=== PATIENT | male | born 1990 | race Caucasian/White ===

== ENCOUNTER 2023-09-14 13:52 | Emergency (ER) | payer BC, SELFPAY ==
[2023-09-14 13:58] VITALS: BP 167/81
[2023-09-14 14:26] LABS: Urine Albumin Negative (Neg - Trace); Urine Bilirubin Negative (Negative); Urine Character Clear (Clear); Urine Color Yellow; Urine Glucose Negative (Negative); Urine Ketone Negative (Negative); Urine Leukocyte Negative (Negative); Urine Nitrite Negative (Negative); Urine Occult Blood 2+ (Negative); Urine Specific Gravity 1.015 (<1.030); Urine Urobilinogen Negative (Neg - 1+)
--- NOTE | 2023-09-14 14:30 | ED.GENMED ---
History of Present Illness
<Kiah Valadez METER MAINTENANCE PERSON - Last Filed: 09/14/23 21:00>
General
Chief Complaint: Male Genito-Urinary Symptoms
Source: patient
Exam Limitations: none
Time Seen by Provider: 09/14/23 14:29
Nursing documentation reviewed up to this point in time: agreed with
Travel History
Have you had any contact with someone who has COVID-19?: No
Do you have any symptoms of coronavirus? Fever > 100 degrees, chills, cough, shortness of breath, sore throat, loss of taste or smell, muscle aches, or headache?: No
History of Present Illness
History of Present Illness:
32-year-old male with no clinically significant past medical history presents stating for past 6 months has had intermittent episodes of inability to empty his bladder, frequency, dribbling, urgency, then back to normal urination.
Saw Urologist 3 weeks ago, found microscopic blood in urine, normal prostate exam and ordered CT scan which pt hasn't gotten. Yesterday episode again of urgency, frequency, dribbling or inability to urinate.
Denies fever/ chills, denies abdominal pain or bladder discomfort. No constipation.
Past History
<Kiah Valadez, METER MAINTENANCE PERSON - Last Filed: 09/14/23 21:00>
Past History
ED Past Medical History: Other (Chronic back pain)
ED Past Surgical History: None
Social History
Tobacco: Non-smoker
Alcohol: Occasional
Drug: None
Personal:
Living: with family
Employment: Employed ([employer])
Review of Systems
<Kiah Valadez, METER MAINTENANCE PERSON - Last Filed: 09/14/23 21:00>
Review of Systems
Allergies reviewed?: Yes
All Other Systems: ROS reviewed and negative except as documented in HPI and ROS
Constitutional: Denies fever or chills
ABD/GI: Denies abdominal pain, nausea or constipated
: Reports frequency, difficulty voiding and urgency; Denies dysuria, flank pain or bleeding
Musculoskeletal: Reports no symptoms
Skin: Reports no symptoms
Neurological: Reports no symptoms
Phy Exam
<Kiah Valadez, METER MAINTENANCE PERSON - Last Filed: 09/14/23 21:00>
Physical Exam
Physical Exam:
GENERAL: No acute distress. A&Ox3.
CONSTITUTIONAL: Afebrile.
ENMT: moist mucus membranes, Pharynx nl
RESPIRATORY: Regular respirations, nonlabored, lungs clear.
CARDIOVASCULAR: Regular rate and rhythm, no murmurs, no rubs.
GI: Soft, nontender, normal BS. No suprapubic tenderness.
MUSCULOSKELETAL: Moves with ease. Well perfused.
SKIN: Warm, dry, pink
PSYCH: Normal mood and affect. Well kept, interactive and appropriate
NEUROLOGIC: Awake, alert and oriented. No focal neurological deficits, ambulates well with steady gait, strength equal throughout
Course
<Kiah Valadez, METER MAINTENANCE PERSON - Last Filed: 09/14/23 21:00>
Orders/Labs/Results
Orders:
Orders
09/14/23 14:20
Urinalysis Reflex To Culture Urgent
Date Specimen was Collected: 09/14/23
Time Specimen was Collected: 14:17
Urine Microscopic Reflex Cult Urgent
09/14/23 14:55
CT Abd/Pel (IV only)-[facility] only Urgent
Comment:
Reason For Exam: urine retention, difficulty urinating past 6 month
09/14/23 15:18
Complete Blood Count/With Diff Urgent
Comprehensive Metabolic Panel Urgent
09/14/23 18:29
Lidocaine 2% [Lidocaine Uro-Jet 2%] 1 syringe [facility]
Abnormal Lab Results
09/14/23 09/14/23
14:20 15:18
WBC 11.5 H 10^3/uL
(4.8-10.8)
MCV 79.8 L fL
(80.0-94.0)
Abs Immat Gran (auto) 0.1 H 10^3/uL
(0-0.05)
Absolute Neuts (auto) 8.0 H 10^3/uL
(1.4-6.5)
Absolute Monos (auto) 0.9 H 10^3/uL
(0.1-0.6)
Immature Gran % 0.6 H %
(0-0.5)
Ur Occult Blood Reflex 2+ A
(Negative)
Urine RBC 16-20 A /HPF
(0-2)
Urine Bacteria (Reflex) Few A
(Negative)
09/14/23 15:18
09/14/23 15:18
Vital Signs
Initial and Last Documented VS:
Initial Vital Signs
Temp Pulse Resp BP Pulse Ox
98.1 F 83 18 167/81 98
09/14/23 13:58 09/14/23 13:58 09/14/23 13:58 09/14/23 13:58 09/14/23 13:58
Last Documented Vital Signs
Temp Pulse Resp BP Pulse Ox
98.1 F 83 18 167/81 98
09/14/23 13:58 09/14/23 13:58 09/14/23 13:58 09/14/23 13:58 09/14/23 13:58
<Fernie Khan MD - Last Filed: 09/14/23 19:38>
Orders/Labs/Results
Orders:
Orders
09/14/23 14:20
Urinalysis Reflex To Culture Urgent
Date Specimen was Collected: 09/14/23
Time Specimen was Collected: 14:17
Urine Microscopic Reflex Cult Urgent
09/14/23 14:55
CT Abd/Pel (IV only)-[facility] only Urgent
Comment:
Reason For Exam: urine retention, difficulty urinating past 6 month
09/14/23 15:18
Complete Blood Count/With Diff Urgent
Comprehensive Metabolic Panel Urgent
09/14/23 18:29
Lidocaine 2% [Lidocaine Uro-Jet 2%] 1 syringe .ROUTE .[facility]
Abnormal Lab Results
09/14/23 09/14/23
14:20 15:18
WBC 11.5 H 10^3/uL
(4.8-10.8)
MCV 79.8 L fL
(80.0-94.0)
Abs Immat Gran (auto) 0.1 H 10^3/uL
(0-0.05)
Absolute Neuts (auto) 8.0 H 10^3/uL
(1.4-6.5)
Absolute Monos (auto) 0.9 H 10^3/uL
(0.1-0.6)
Immature Gran % 0.6 H %
(0-0.5)
Ur Occult Blood Reflex 2+ A
(Negative)
Urine RBC 16-20 A /HPF
(0-2)
Urine Bacteria (Reflex) Few A
(Negative)
09/14/23 15:18
09/14/23 15:18
Vital Signs
Initial and Last Documented VS:
Initial Vital Signs
Temp Pulse Resp BP Pulse Ox
98.1 F 83 18 167/81 98
09/14/23 13:58 09/14/23 13:58 09/14/23 13:58 09/14/23 13:58 09/14/23 13:58
Last Documented Vital Signs
Temp Pulse Resp BP Pulse Ox
98.1 F 83 18 167/81 98
09/14/23 13:58 09/14/23 13:58 09/14/23 13:58 09/14/23 13:58 09/14/23 13:58
<Kiah Valadez METER MAINTENANCE PERSON - Last Filed: 09/14/23 21:00>
MDM/Problems Addressed
Differential Diagnosis Includes:
UTI, urethral stricture, mass, neurogenic bladder
MDM/Problems Addressed:
32-year-old male with no clinically significant past medical history presents stating for past 6 months has had intermittent episodes of inability to empty his bladder, frequency, dribbling, urgency, then back to normal urination.
Saw Urologist 3 weeks ago, found microscopic blood in urine, normal prostate exam and ordered CT scan which pt hasn't gotten. Yesterday episode again of urgency, frequency, dribbling or inability to urinate.
Denies fever/ chills, denies abdominal pain or bladder discomfort. No constipation.
NAD
Abdomen benign
4:30 PM:
CBC: WBC 11.5
CMP: Normal
UA: 2+ occult blood, 16-[address] abdomen pelvis: Radiology report read: IMPRESSION: The spleen is mildly enlarged with maximum dimension of 15.0 cm. No evidence of a focal splenic lesion.
Bony degenerative changes as described.
Normal CT appearance of the kidneys and bladder. Of note, the bladder measures 12.8 cm craniocaudal by 11.1 cm AP by 9.6 cm transverse, giving an estimated volume of 713 cc. As warranted, consideration could be given to ultrasound assessment of
bladder postvoid residual.
Mena catheter placed. Pt has appointment with [facility] in 10 days. He will call tomorrow to see if appt should be moved up.
No sign of infection, no antibiotics indicated.
No neurological deficits.
6:48 PM unsuccessful attempt x 2 to insert Mena catheter, unsuccessful attempt x 1 using a coud� catheter.
Dr. Khan consulted and in.
7:15 PM
Patient's symptoms seem to be slowly resolving, he has voided twice and a repeat bladder scan at this time shows a residual of 380 cc.
Since he has had these episodes in the past, his abdomen is soft, nontender, nondistended, his symptoms seem to be slowly resolving, it is reasonable to discharge him to contact his urologist tomorrow, and to return here tomorrow if his symptoms are
not completely resolved.
<Kiah Valadez NP - Last Filed: 09/14/23 21:00>
*Critical Care Note
Total Time (30-74mins, 75-104mins- exclusive of procedures): Not Applicable
ED Attending Note
<Kiah Valadez NP - Last Filed: 09/14/23 21:00>
-
Portions of this chart may have been created with voice recognition software.� Occasional wrong word or��sound alike� substitutions may have occurred due to the inherent limitations of voice recognition software.
<Fernie Khan MD - Last Filed: 09/14/23 19:38>
ED Attending Note
Patient seen and examined by attending physician: Yes
I performed the substantive portion of visit, reviewed & personally made and approve the management plan that is documented in note by myself or JOHNSON.: Yes
ED Attending Note:
Patient with urinary retention and decreased flow throughout the day. Has had this intermittently for a while. Has been seen by urology. Scheduled for cystoscopy in the near future. No fever abdominal pain no distal numbness tingling or
weakness. No neurologic symptoms or spinal symptoms.
On exam patient is nontoxic in no distress. Abdomen is soft and nontender. Good lower extremity strength. No appreciable urinary tension clinically
Labs are stable renal function normal. No sign of urine infection. Patient was able to urinate twice while I was there. He states this is the way these episodes happen and they usually continue to improve and resolve over 12 to 24 hours. We
attempted a catheter earlier without success. Patient symptoms have been improving in the last hour or so. The weight is typically behaves his it resolves. He would like to avoid catheter. Currently has about 380 cc and is no distress. He will
see how this progresses overnight fully understanding there is a chance he is returning more tomorrow for a catheter. I stressed if symptoms do not totally resolve he needs to return as this could affect his kidney function
Discharge Plan
Departure
Patient Disposition: Home (Routine Discharge)
Date of Disposition: 09/14/23
Time of Disposition: 19:21
Patient with high blood pressure during this ER visit?: No
Condition: Good
Discharge Problem:
Acute retention of urine, Microscopic hematuria
Instructions: Urinary Retention (DC)
Prescriptions:
No Action
prednisone 50 MG tablet
50 mg PO DAILY 5 Days Qty: 5 0RF
cyclobenzaprine 10 MG tablet
10 mg PO BIDPRN PRN (Reason: muscle spasm) 7 Days Qty: 13 0RF
acetaminophen [Tylenol Extra Strength] 500 MG tablet
500 mg PO Q6HPRN PRN (Reason: pain) 5 Days Qty: 16 0RF
Referrals:
Victor M, [facility] [Other] - Keep scheduled appt
Teresa Miller PA [Family Provider] -
Stand Alone Forms: Return to Work
Activity Restrictions/Additional Instructions:
As we discussed, call your urologist at [facility] tomorrow to see if they want you to move your appointment
If you retain urine for too long it can affect your kidneys
Return here tomorrow if your symptoms are not fully resolved.
Interventions
Interventions:
*Risk Screen - Suicide Last Done: 09/14/23 13:58
*General Assessment Last Done: 09/14/23 13:58
*Neglect/Abuse Screening Last Done: 09/14/23 13:58
ED- Fall Risk Assessment Last Done: 09/14/23 14:50
*ED COVID-19 Vaccine History Last Done: 09/14/23 14:47
*Nursing Disposition Last Done: 09/14/23 19:30
ED-Male Genitourinary Assessment Last Done: 09/14/23 14:50
Discharge Date and Time
Discharge Date/Time: 09/14/23 19:30
Print Language: MALAY
[2023-09-14 14:33] LABS: Urine Squamous Cell 0-2 /LPF (Few)
[2023-09-14 14:34] LABS: Urine Bacteria Few (Negative); Urine Red Blood Cell 16-20 /HPF (0-2); Urine White Cell 0-2 /HPF (0-5)
[2023-09-14 15:27] LABS: % Basophils 0.5 % (0-2); % Eosinophils 0.3 % (0-6); % Immature Granulocytes 0.6 % (0-0.5); % Lymphocytes 20.9 % (20.5-51.1); % Monocytes 8.2 % (1.7-9.3); % Neutrophils 69.5 % (42.2-75.2); Absolute Basophils 0.1 10^3/uL (0-0.2); Absolute Immature Granulocytes 0.1 10^3/uL (0-0.05); Absolute Lymphocytes 2.4 10^3/uL (1.2-3.4); Absolute Monocytes 0.9 10^3/uL (0.1-0.6); Hematocrit 43.5 % (39.0-52.0); Hemoglobin 15.5 g/dL (13.0-18.0); Mean Corp Hgb Conc. 35.6 g/dL (33.0-37.0); Mean Corpuscular Hgb 28.4 pg (27.0-31.0); Mean Corpuscular Volume 79.8 fL (80.0-94.0); Mean Platelet Volume 10.2 fL (7.4-10.4); Nucleated Red Blood Cells % 0 % (-); Platelet Count 227 10^3/uL (130-400); Red Blood Cell Count 5.45 10^6/uL (4.70-6.10); Red Cell Dist. Width 12.2 % (11.5-14.5); White Blood Cell Count 11.5 10^3/uL (4.8-10.8)
[2023-09-14 15:41] LABS: ALT (SGPT) 23 U/L (0-50); AST (SGOT) 26 U/L (17-59); Albumin 4.9 g/dl (3.5-5.0); Alkaline Phosphatase 71 U/L (38-126); Blood Urea Nitrogen 17 mg/dl (9-20); Calcium 10.2 mg/dl (8.4-10.2); Carbon Dioxide 27 mmol/L (22-30); Chloride 104 mmol/L (98-107); Glucose 95 mg/dl (70-99); Potassium 4.3 mmol/L (3.5-5.1); Sodium 138 mmol/L (135-145); Total Bilirubin 0.6 mg/dl (0.2-1.3); Total Protein 7.9 g/dl (6.3-8.2); eGFR > 60.00
== END 2023-09-14 19:30 | disposition home or self-care (01) ==
LOC: EMR 13:52
PROVIDERS: Emergency Medicine; Registered Nurse; EMERGENCY PHYSICIAN Emergency Medicine; FAMILY PHYSICIAN Physician Assistant
DX: R33.9 Retention of urine, unspecified (principal); R31.29 Other microscopic hematuria; R16.1 Splenomegaly, not elsewhere classified
CPT/HCPCS: 99285; 51798; 51701; 74177; 80053; 81003; 81015; 85025; Q9967